=== PATIENT | female | born 1950 | race Caucasian/White ===

== ENCOUNTER 2016-08-04 08:40 | Day surgery (SDC) | payer OTHER ==
[2016-08-04] VITALS (15 sets, daily range): BP systolic 94–119; BP diastolic 53–69; PULSE 69–90; RESP 16–18; Ht 160 cm; Wt 63.8 kg
[~2016-08-04] VITALS: Ht 160 cm; Wt 63.8 kg
[~2016-08-04 08:40] MED LIST: CEFAZOLIN 2 GM/50 ML (PMX) 50 ML IVPB ONE; SOD CHLORIDE 0.9% 1,000 ML IV ONE
[2016-08-04] MEDS ORDERED: AMLO5TAB4 PO (09:39)
[2016-08-04] MEDS ORDERED: GEMF600T PO (09:39)
[2016-08-04] MEDS ORDERED: DOCU-144 PO (09:40)
[2016-08-04] MEDS ORDERED: ASPI81TA3 PO (09:40)
[2016-08-04] MEDS ORDERED: BUPIVACAINE 0.25% (MPF) 30 ML INJ ONE (10:52)
[2016-08-04] MEDS ORDERED: PROPOFOL 20 ML ONE (10:53)
[2016-08-04] MEDS ORDERED: FENTAnyl 50 MCG/ML VIAL ONE ×2 (10:54→11:28)
[2016-08-04] MEDS ORDERED: LIDOCAINE 2% (SDV) 5 ML INJ ONE (10:54)
[2016-08-04] MEDS ORDERED: CEFAZOLIN 1 GM INJ ONE (11:16)
[2016-08-04] MEDS ORDERED: DEXAMETHASONE 4 MG/ML 1 ML INJ ONE (11:16)
[2016-08-04] MEDS ORDERED: GLYCOPYRROLATE 0.4 MG INJ ONE (11:59)
[2016-08-04] MEDS ORDERED: ONDANSETRON 4 MG INJ ONE (11:59)
--- NOTE | 2016-08-04 12:09 | OPR ---
Date/Time of Note Date/Time of Note DATE: 08/04/16 TIME: 12:08 Operative Report Procedure Date: August 04, 2016 Preoperative Diagnosis hemorrhoids and posterior fissure Postoperative Diagnosis grade 3 internal hemorrhoids and external hemorrhoids posterior fissure Operation Performed proctoplasty ultrasound guidance of internal hemorrhoids artery ligation multiple posterior fissurectomy rigid proctoscopy therapeutic injection of marcaine subcutaneously Surgeon: Nasir CHAPPELL Specimens posterior fissure Nasir CHAPPELL August 04, 2016 12:09
[2016-08-04] MEDS ORDERED: EPHEDrine SULFATE 50 MG/5 ML SYG IV PRN (12:30)
[2016-08-04] MEDS ORDERED: HYDROCODONE/APAP (5/325) TAB PO ONE (12:30)
[2016-08-04] MEDS ORDERED: BISACODYL (EC) 5 MG TAB PO ONE (12:30)
[2016-08-04] MEDS ORDERED: MEPERIDINE 25 MG INJ IV PRN (12:30)
[2016-08-04] MEDS ORDERED: hydrALAzine 20 MG INJ IV PRN (12:30)
[2016-08-04] MEDS ORDERED: ONDANSETRON 4 MG INJ IV PRN (12:30)
[2016-08-04] MEDS ORDERED: DIPHENHYDRAMINE 50 MG INJ IV PRN (12:30)
[2016-08-04] MEDS ORDERED: LABETALOL HCL 20MG INJ IV PRN (12:30)
[2016-08-04] MEDS ORDERED: FENTAnyl 50 MCG/ML VIAL IV PRN ×3 (12:30)
--- NOTE | 2016-08-04 14:17 | OPR ---
DATE OF OPERATION: 08/04/2016 INDICATION: This is a 66-year-old female with grade III hemorrhoids, internal and external hemorrhoids, and a posterior anal fissure. She requests surgical repair. Risks, alternatives, benefits, and personnel were discussed with the patient. The patient expressed understanding and consents to the operation. PREOPERATIVE DIAGNOSIS: Posterior fissure and grade III internal and external hemorrhoids. POSTOPERATIVE DIAGNOSIS: Posterior fissure and grade III internal and external hemorrhoids. OPERATIONS: 1. Proctoplasty for prolapse of mucous membranes, CPT codes 48325. 2. Ligation of internal hemorrhoids, multiple procedures, CPT codes 54427. 3. Ligation of hemorrhoidal vascular bundles including ultrasound guidance, CPT code 0249T. 4. Posterior fissurectomy. 5. Rigid proctoscopy. 6. Therapeutic injection, subcutaneous, of Marcaine, CPT code 94360. SURGEON: Zahida Nuñez MD SPECIMEN: Posterior fissure. COMPLICATIONS: None. ANESTHESIA: General. DESCRIPTION OF PROCEDURE: The patient was taken to the OR and prepped and draped in the usual sterile fashion. Surgical time out was performed. IV antibiotics were given. Rigid proctoscopy was performed. There was no evidence of masses or lesions. The prep was poor. Attention was paid to the posterior fissure. There was a sentinel pile and a posterior fissure of scar tissue in place. This is excised using a 15 blade and handheld cautery. Hemostasis was established. Proctoplasty was performed by placing THD ultrasound guidance. Internal hemorrhoidal artery ligation is performed in multiple quadrants using ultrasound guidance. This was performed with a figure- of-eight 0 Vicryl suture. The proctoplasty was performed by suturing multiple rows of suturing from the internal hemorrhoidal artery ligation and proximally tying up the mucous membranes. This is performed in multiple quadrants. Rigid proctoscopy was repeated. There was no evidence of any obstruction and patency of anal canal. Local anesthesia to all surgical sites and particularly surrounding the mucous membranes where the posterior fissure was performed. Dry dressings were applied. Dictated By: ZAHIDA YANG/SILVESTRE Conf#: [id number] DID#: [id number] [facility]
== END 2016-08-04 14:35 | disposition home or self-care (01) ==
LOC: SDS 08:40
PROVIDERS: ATTEND Surgery
DX: N84.0 Polyp of corpus uteri (principal); K64.8 Other hemorrhoids; K64.2 Third degree hemorrhoids; K60.2 Anal fissure, unspecified; I10 Essential (primary) hypertension
CPT/HCPCS: 45505; 46261; 88304; J0690; J1100; J2405; J3010; Z7512; Z7610